=== PATIENT | male | born 1970 | race Caucasian/White ===

== ENCOUNTER 2018-02-19 05:41 | Observation (INO) | payer OTHER ==
[~2018-02-19] VITALS: Ht 172.7 cm; Wt 111.4 kg
[2018-02-19] VITALS (159 sets, daily range): BP systolic 108–144; BP diastolic 76–94; PULSE 75–92; TEMP 97.5–98; O2SAT 90–99
[2018-02-19 06:37] LABS: HEMATOCRIT 43.8 % (42.0-52.0); HEMOGLOBIN 15.2 g/dl (13.5-18.0); MEAN CELL VOLUME 91 fl (80.0-100.0); MEAN CORPUSCULAR HEMOGLOBIN 32 pg (27.0-31.0); MEAN CORPUSCULAR HGB CONC 35 g/dl (33.0-37.0); MEAN PLATELET VOLUME 10.3 fl (7.4-10.4); PLATELET COUNT 225 K/mm3 (130-400); RED BLOOD COUNT 4.79 M/mm3 (4.20-5.60); REDCELL DISTRIBUTION WIDTH-CV 12.7 % (11.5-14.5)
[2018-02-19] MEDS ORDERED: PLAVIX 75MG TAB75 MG PO (06:50)
[2018-02-19] MEDS ORDERED: LOPRESSOR 225 MG/TAB PO (06:51)
[2018-02-19] MEDS ORDERED: CRESTOR20 MG PO (06:51)
[2018-02-19] MEDS ORDERED: LOTENSIN20 MG PO (06:52)
[2018-02-19] MEDS ORDERED: ASPIRIN 81M81 MG/TA2 PO (06:53)
[2018-02-19 06:57] LABS: CALCIUM 9.1 mg/dL (8.4-10.2); CREATININE, serum 1.16 mg/dL (0.66-1.25); POTASSIUM 4.3 mmol/L (3.4-5.0)
[2018-02-19 06:59] LABS: PROTHROMBIN TIME 11.2 SECONDS (9.7-12.8)
[2018-02-20] VITALS (125 sets, daily range): BP systolic 126–141; BP diastolic 79–96; PULSE 76–84; TEMP 97.9–98; O2SAT 85–100
[2018-02-20 03:37] LABS: BASO % 0.5 % (0.0-2.0); EOS # 0.1 (0.0-0.7); EOS % 0.8 % (0-4.0); GRAN # 5.1 (1.4-6.5); GRAN % 67.6 % (42.2-75.2); HEMATOCRIT 40.1 % (42.0-52.0); LYMPH # 1.8 (1.2-3.4); LYMPH % 23.9 % (20.0-51.0); MEAN CELL VOLUME 92 fl (80.0-100.0); MEAN CORPUSCULAR HEMOGLOBIN 32 pg (27.0-31.0); MEAN CORPUSCULAR HGB CONC 35 g/dl (33.0-37.0); MEAN PLATELET VOLUME 9.9 fl (7.4-10.4); MONO # 0.5 (0.1-0.6); MONO % 6.9 % (1.7-9.3); PLATELET COUNT 174 K/mm3 (130-400); RED BLOOD COUNT 4.37 M/mm3 (4.20-5.60); REDCELL DISTRIBUTION WIDTH-CV 12.8 % (11.5-14.5)
[2018-02-20 03:46] LABS: CALCIUM 9.1 mg/dL (8.4-10.2); CREATININE, serum 1.06 mg/dL (0.66-1.25); POTASSIUM 4.2 mmol/L (3.4-5.0)
[2018-02-20] MEDS ORDERED: ASPI325T6 PO (10:24)
[2018-02-20] MEDS ORDERED: NITROSTAT0.4 MG/TAB SL (10:24)
[2018-02-20] MEDS ORDERED: IMDUR 30MG30 MG/TAB PO (10:25)
== END 2018-02-20 11:35 | disposition home or self-care (01) ==
LOC: COL.CAR 05:41 → ICU 12:52 → COL.CAR 02-28 12:30
PROVIDERS: Internal Medicine Interventional Cardiology
DX: I25.118 Atherosclerotic heart disease of native coronary artery with other forms of angina pectoris (principal); R94.39 Abnormal result of other cardiovascular function study; I10 Essential (primary) hypertension; E78.5 Hyperlipidemia, unspecified; Z79.02 Long term (current) use of antithrombotics/antiplatelets; Z79.82 Long term (current) use of aspirin; Z87.891 Personal history of nicotine dependence; Z82.49 Family history of ischemic heart disease and other diseases of the circulatory system
CPT/HCPCS: C1725; C1769; C1874; C1887; C1894; C9600; G0378; G0379; J0583; J2250; J3010